=== PATIENT | male | born 1985 | race Caucasian/White ===

== ENCOUNTER 2021-05-12 09:01 | Emergency (ER) | payer MEDICAID, OTHER ==
--- NOTE | 2021-05-12 10:18 | EDM.PDOC ---
ED HPI GENERAL MEDICAL PROBLEM - General Chief Complaint: Lower Extremity Injury/Pain Stated Complaint: RT KNEE INJURY /FEVER X 3 DAYS Time Seen by Provider: 05/12/21 10:17 - History of Present Illness INITIAL COMMENTS - FREE TEXT/NARRATIVE: 36-year-old male presents the emergency room with fever for 3 days and a recent knee injury. Patient's been having generalized aches and pains and fever for the last 3 days. 2 days ago he injured his right knee at work. He is scheduled for an MRI tomorrow through the [employer] system. And has clinic follow-up the day after tomorrow. The patient's had a cough with the fevers he has noticed this mostly at night he has generalized aches and pains. He also might have some loss of taste and smell sensation. The patient was involved in occupational medicine injury 2 days ago and has suspected internal knee derangement involving the right knee. He is wearing a knee immobilizer on the side. Patient has not noticed any increasing warmth or redness involving the knee. Right Knee Pain Score (Numeric/FACES): 10 - Related Data Allergies Allergy/AdvReac Type Severity Reaction Status Date / Time cephalexin [From Keflex] Allergy Hives Verified 05/12/21 09:18 Home Meds: Home Meds Pregabalin [Lyrica] 0 mg PO DAILY 05/12/21 [History] Past Medical History - Past Surgical History HEENT Surgical History: Reports: LASIK, Naso-Sinus Surgery Respiratory Surgical History: Reports: Other (See Below) Other Respiratory Surgeries/Procedures: surgery to ribs Musculoskeletal Surgical History: Reports: Arthroscopic Knee, Other (See Below) Other Musculoskeletal Surgeries/Procedures:: left ankle surgery, left knee meniscus, ACL, PCL, and MCL repairs Social & Family History - Tobacco Use Tobacco Use Status *Q: Current Every Day Tobacco User Years of Tobacco use: 2 Packs/Tins Daily: 0.1 - Recreational Drug Use Recreational Drug Use: No Review of Systems - Review of Systems Review Of Systems: See Below Constitutional: Reports: Fever Eyes: Reports: No Symptoms Ears: Reports: No Symptoms Nose: Reports: No Symptoms Mouth/Throat: Reports: No Symptoms Respiratory: Reports: Cough. Denies: Shortness of Breath, Sputum Cardiovascular: Reports: No Symptoms GI/Abdominal: Reports: No Symptoms Genitourinary: Reports: No Symptoms Musculoskeletal: Reports: Other (Knee pain associated with recent injury) Skin: Reports: No Symptoms Neurological: Reports: No Symptoms ED EXAM, GENERAL - Physical Exam Exam: See Below Exam Limited By: No Limitations General Appearance: Alert, No Apparent Distress Head: Atraumatic, Normocephalic Neck: Normal Inspection, Supple, Non-Tender, Full Range of Motion. No: Lymphadenopathy (L), Lymphadenopathy (R) Respiratory/Chest: No Respiratory Distress, Lungs Clear, Normal Breath Sounds, No Accessory Muscle Use, Chest Non-Tender Cardiovascular: Normal Peripheral Pulses, Regular Rate, Rhythm, No Edema, No Gallop, No JVD, No Murmur, No Rub GI/Abdominal: Normal Bowel Sounds, Soft, Non-Tender Extremities: Other (Patient has a knee immobilizer in place this was removed no warmth or significant erythema appreciated he has some soft tissue swelling) Neurological: Alert, Oriented, Normal Cognition Course - Vital Signs Last Recorded V/S: Last Vital Signs Temp 35.4 C L 05/12/21 09:15 Pulse 86 05/12/21 09:15 Resp 16 05/12/21 09:15 BP 134/92 H 05/12/21 09:15 Pulse Ox 95 05/12/21 09:15 - Orders/Labs/Meds Labs: Laboratory Tests 05/12/21 05/12/21 05/12/21 Range/Units 10:39 11:11 11:11 WBC 4.02 L (4.23-9.07) K/mm3 RBC 4.82 (4.63-6.08) M/mm3 Hgb 14.7 (13.7-17.5) gm/dl Hct 44.5 (40.1-51.0) % MCV 92.3 H (79.0-92.2) fl MCH 30.5 (25.7-32.2) pg MCHC 33.0 (32.2-35.5) g/dl RDW Std Deviation 43.8 (35.1-43.9) fL Plt Count 168 (163-337) K/mm3 MPV 10.0 (9.4-12.3) fl Neutrophils % (Manual) 49 (40-60) % Band Neutrophils % 14 H (0-10) % Lymphocytes % (Manual) 21 (20-40) % Atypical Lymphs % 4 % Monocytes % (Manual) 12 H (2-10) % Eosinophils % (Manual) 0 L (0.8-7.0) % Basophils % (Manual) 0 L (0.2-1.2) Platelet Estimate Adequate Plt Morphology Comment Normal RBC Morph Comment Normal ESR (0-15) mm/hr Sodium 141 (136-145) mEq/L Potassium 3.7 (3.5-5.1) mEq/L Chloride 103 (98-107) mEq/L Carbon Dioxide 29 (21-32) mEq/L Anion Gap 12.7 (5-15) BUN 18 (7-18) mg/dL Creatinine 1.3 (0.7-1.3) mg/dL Est Cr Clr Drug Dosing 81.89 mL/min Estimated GFR (MDRD) > 60 (>60) mL/min BUN/Creatinine Ratio 13.8 L (14-18) Glucose 76 (70-99) mg/dL Calcium 8.7 (8.5-10.1) mg/dL Total Bilirubin 0.2 (0.2-1.0) mg/dL AST 37 (15-37) U/L ALT 48 (16-63) U/L Alkaline Phosphatase 53 (46-116) U/L C-Reactive Protein 4.8 H* (<1.0) mg/dL Total Protein 7.3 (6.4-8.2) g/dl Albumin 3.8 (3.4-5.0) g/dl Globulin 3.5 gm/dL Albumin/Globulin Ratio 1.1 (1-2) SARS-CoV-2 RNA (TIN) Positive H (NEGATIVE) 05/12/21 Range/Units 11:11 WBC (4.23-9.07) K/mm3 RBC (4.63-6.08) M/mm3 Hgb (13.7-17.5) gm/dl Hct (40.1-51.0) % MCV (79.0-92.2) fl MCH (25.7-32.2) pg MCHC (32.2-35.5) g/dl RDW Std Deviation (35.1-43.9) fL Plt Count (163-337) K/mm3 MPV (9.4-12.3) fl Neutrophils % (Manual) (40-60) % Band Neutrophils % (0-10) % Lymphocytes % (Manual) (20-40) % Atypical Lymphs % % Monocytes % (Manual) (2-10) % Eosinophils % (Manual) (0.8-7.0) % Basophils % (Manual) (0.2-1.2) Platelet Estimate Plt Morphology Comment RBC Morph Comment ESR 6 (0-15) mm/hr Sodium (136-145) mEq/L Potassium (3.5-5.1) mEq/L Chloride (98-107) mEq/L Carbon Dioxide (21-32) mEq/L Anion Gap (5-15) BUN (7-18) mg/dL Creatinine (0.7-1.3) mg/dL Est Cr Clr Drug Dosing mL/min Estimated GFR (MDRD) (>60) mL/min BUN/Creatinine Ratio (14-18) Glucose (70-99) mg/dL Calcium (8.5-10.1) mg/dL Total Bilirubin (0.2-1.0) mg/dL AST (15-37) U/L ALT (16-63) U/L Alkaline Phosphatase (46-116) U/L C-Reactive Protein (<1.0) mg/dL Total Protein (6.4-8.2) g/dl Albumin (3.4-5.0) g/dl Globulin gm/dL Albumin/Globulin Ratio (1-2) SARS-CoV-2 RNA (TIN) (NEGATIVE) - Re-Assessments/Exams Free Text/Narrative Re-Assessment/Exam: 05/12/21 12:12 Patient did test positive for Covid chest x-ray initially did not show any infiltrates however there was a questionable pneumothorax in the right lung apices we checked an expiratory view and this is not confirmed. 05/12/21 14:11 Labs are very typical for Covid except for the white cell differential. I did discuss this with relation to the knee injury with Dr. Lyons on-call Ortho. He is not concerned about the differential and I think is highly unlikely he has something infectious going on in his knee. At this point we will discharge the patient Departure - Departure Time of Disposition: 14:12 Disposition: Home, Self-Care 01 Clinical Impression: Right knee injury, COVID-19 - Discharge Information Referrals: PCP,Not In Area [Primary Care Provider] - Forms: ED Department Discharge Additional Instructions: Return to the emergency room with any questions problems or concerning symptoms. Our recommendation for Covid isolation is for 10 days from onset of symptoms so long as you have been symptom-free for 72 hours. Follow-up with occupational med per their recommendations. Sepsis Event Note (ED) - Evaluation Sepsis Screening Result: No Definite Risk - Focused Exam Vital Signs: Vital Signs Temp Pulse Resp BP Pulse Ox 05/12/21 09:15 35.4 C L 86 16 134/92 H 95
--- NOTE | 2021-05-12 11:11 | CR ---
Chest: Portable view of the chest was obtained. Comparison: No prior chest imaging is available. Heart size and mediastinum are normal. Linear density is noted within the right upper lung. Difficult to exclude a small apical pneumothorax. Please correlate with patient's symptoms. Lungs otherwise are clear. Scattered degenerative spurring is seen within the lower thoracic spine. Impression: 1. Questionable findings of small apical pneumothorax on the right side. Expiratory view would be helpful to further define. 2. Nothing acute is otherwise seen. Diagnostic code #5
--- NOTE | 2021-05-12 12:10 | CR ---
Chest: Expiratory view of the chest was obtained. Comparison: Prior chest x-ray performed earlier the same day (10:26 AM). Previously suggested pneumothorax within the right lung apex is not present on the expiratory view. This presumably was artifact. Lungs show no acute parenchymal change. Heart size and mediastinum are normal. Minimal degenerative change is seen within the lower thoracic spine. Impression: 1. Previous suggested pneumothorax is not confirmed on expiratory view. 2. Nothing acute is seen. Diagnostic code #1
== END 2021-05-12 14:20 | disposition home or self-care (01) ==
LOC: JD.ED 09:01
DX: S89.91XA Unspecified injury of right lower leg, initial encounter (principal); U07.1 COVID-19; Z72.0 Tobacco use; Z88.1 Allergy status to other antibiotic agents; X58.XXXA Exposure to other specified factors, initial encounter; Y92.89 Other specified places as the place of occurrence of the external cause; Y99.0 Civilian activity done for income or pay
CPT/HCPCS: 36415; 71045; 71045-26; 80053; 85007; 85027; 85652; 86140; 99283; 99283-25; U0002

== ENCOUNTER 2025-05-22 10:54 | Emergency (ER) | payer BC, MEDICAID ==
[2025-05-22 11:25] LABS: BASOPHILS ABSOLUTE AUTO 0.0 K/mm3 (0.0-0.2); BASOPHILS PERCENT AUTO 0.3 % (0.0-1.0); EOSINOPHILS ABSOLUTE AUTO 0.1 K/mm3 (0.0-0.4); EOSINOPHILS PERCENT AUTO 0.4 % (0.0-6.0); IMMATURE GRAN ABSOLUTE AUTO 0.04 K/mm3 (0.00-0.05); IMMATURE GRAN PERCENT AUTO 0.3 % (0.0-0.4); LYMPHOCYTES ABSOLUTE AUTO 1.7 K/mm3 (1.0-4.8); LYMPHOCYTES PERCENT AUTO 14.5 % (24.0-44.0); MEAN PLATELET VOLUME 9.8 fl (9.4-12.4); MONOCYTES ABSOLUTE AUTO 0.8 K/mm3 (0.0-0.8); MONOCYTES PERCENT AUTO 7.0 % (0.0-8.0); NEUTROPHILS ABSOLUTE AUTO 9.0 K/mm3 (1.8-7.7); NEUTROPHILS PERCENT AUTO 77.5 % (41.0-71.0); NRBC ABSOLUTE 0.00 (0.00-0.02); NRBC PERCENT 0.0 % (0.0-0.2); PLATELET COUNT,PLT 225 K/mm3 (150-400); RED BLOOD CELL COUNT 4.61 M/mm3 (4.52-5.90); WHITE BLOOD CELL COUNT,WBC 11.62 K/mm3 (3.9-11.3)
[2025-05-22] MEDS: Sodium Chloride 0.9% 10 ML Syringe FLUSH PRN (11:42)
[2025-05-22 11:50] LABS: A/G RATIO 1.1 (1-2); ALANINE AMINOTRANSFERASE,ALT 70.0 U/L (16-63); ASPARTATE AMNIOTRANSFERASE,AST 38.0 U/L (15-37); BILIRUBIN TOTAL 0.2 mg/dL (0.2-1.0); BLOOD UREA NITROGEN,BUN 26.0 mg/dL (7-18); CARBON DIOXIDE,CO2 27.0 mEq/L (21-32); CHLORIDE,CL 103.0 mEq/L (98-107); CREATININE 1.2 mg/dL (0.7-1.3); EST CRCL DRUG DOSING (CG) 82.65 mL/min; ESTIMATED GFR 79.0 mL/min (>60); GLUCOSE RANDOM 70.0 mg/dL (70-99); POTASSIUM,K 3.7 mEq/L (3.5-5.1); PROTEIN TOTAL,TP 7.9 g/dl (6.4-8.2); SODIUM,NA 140.0 mEq/L (136-145); TROPONIN I HIGH SENSITIVITY 8.0 pg/mL (<=76)
[2025-05-22] MEDS ORDERED: Naloxone 0.4 MG/ML SDV IVPUSH PRN (12:07)
[2025-05-22] MEDS ORDERED: Sodium Chloride 0.9% 10 ML Syringe FLUSH PRN (12:16)
[2025-05-22] MEDS: Iopamidol 755 Mg/ML 100 ML Bottle IVPUSH ONE (12:26)
[2025-05-22 12:31] LABS: APPEARANCE,URINE CLEAR (Clear); GLUCOSE,URINE NEGATIVE (Negative); OCCULT BLOOD,URINE NEGATIVE (Negative)
[2025-05-22 12:41] LABS: AMPHETAMINES SCREEN, URINE NEGATIVE (CUTOFF=500); BUPRENORPHINE SCREEN,URINE NEGATIVE (CUTOFF=10); METHADONE SCREEN, URINE NEGATIVE (CUT0FF=200); METHAMPHETAMINES SCREEN, URINE NEGATIVE (CUTOFF=500); OXYCODONE SCREEN,URINE NEGATIVE (CUT0FF=100); THC SCREEN,URINE 20 NG/ML NEGATIVE (CUTOFF=50)
[2025-05-22 12:55] LABS: SQUAMOUS EPITHELIAL CELLS,UR 0-5 /hpf (0-5)
[2025-05-22] MEDS: Ketorolac 30 MG/ML SDV IVPUSH ONE (14:22)
== END 2025-05-22 14:20 | disposition home or self-care (01) ==
LOC: JD.ED 10:54
DX: R07.89 Other chest pain (principal); Z88.1 Allergy status to other antibiotic agents; Z79.899 Other long term (current) drug therapy
CPT/HCPCS: 36415; 71045; 71275; 80053; 80306; 81001; 83735; 84484; 85025; 87040; 93005; 96361; 96374; 99285; A9270; J1885; J2270; J7030; Q9967